=== PATIENT | male | born 1995 | race African-American/Black ===

== ENCOUNTER 2025-04-16 14:08 | Emergency (ER) | payer MEDICAID ==
[~2025-04-16] VITALS: Ht 190.5 cm; Wt 79.0 kg
[2025-04-16 14:54] VITALS: BP 112/83; PULSE 81; RESP 16; TEMP 98.4; O2SAT 99
[2025-04-16 15:41] LABS: PLATELET COUNT (AUTO) 215 K/uL (150-450); RED BLOOD CELL COUNT(AUTO) 4.27 MIL/uL (4.50-5.90); RED CELL DISTRIBUTION WIDTH 12.4 % (11.5-14.5); WHITE BLOOD COUNT (AUTO) 5.2 K/uL (4.5-11.0)
== END 2025-04-16 17:56 | disposition home or self-care (01) ==
LOC: EMS 14:08
DX: Z00.00 Encounter for general adult medical examination without abnormal findings (principal); F12.90 Cannabis use, unspecified, uncomplicated
CPT/HCPCS: 85025; 99283

== ENCOUNTER 2025-04-24 12:43 | Emergency (ER) | payer MEDICAID ==
[~2025-04-24] VITALS: Ht 190.5 cm; Wt 79.0 kg
[2025-04-24 12:50] VITALS: TEMP 98
[2025-04-24 13:59] LABS: PLATELET COUNT (AUTO) 209 K/uL (150-450); RED BLOOD CELL COUNT(AUTO) 4.52 MIL/uL (4.50-5.90); RED CELL DISTRIBUTION WIDTH 12.6 % (11.5-14.5); WHITE BLOOD COUNT (AUTO) 4.8 K/uL (4.5-11.0)
[2025-04-24 14:15] VITALS: BP 126/84; PULSE 75; RESP 16; O2SAT 99
== END 2025-04-24 14:22 | disposition home or self-care (01) ==
LOC: EMS 12:50
DX: F12.90 Cannabis use, unspecified, uncomplicated (principal); Z00.00 Encounter for general adult medical examination without abnormal findings
CPT/HCPCS: 85025; 99283